=== PATIENT | male | born 2000 ===

== ENCOUNTER 2024-08-03 18:40 | Emergency (ER) | payer OTHER, SELFPAY ==
--- NOTE | ~2024-08-03 | XR_ITS ---
Portable chest x-ray Comparison: Chest pain Clinical History: None Findings: Lungs are clear, without focal consolidation or pleural effusion. Cardiomediastinal silho uette is unremarkable. Bones and soft tissues are unremarkable. Impression: Normal chest. Reviewed, dictated and finalized at location M. Impression: Normal chest.
--- NOTE | ~2024-08-03 | CT_ITS ---
CT of the Abdomen and Pelvis: Indication: Abdominal pain Technique: 2.5 mm axial scans were obtained through the abdomen and pelvis following intravenous adm inistration of 100 cc of Omnipaque 350. Dose reduction technique was used on this scan by utilizing a utomated exposure control and iterative reconstruction technique. The dose-length product (DLP) was 3 11.85 mGy-cm. Findings: Scans through the lung bases are unremarkable. The liver, spleen, pancreas, gallbladder, adrenals and kidneys are within normal limits. No evidence of aortic aneurysm. No lymphadenopathy. No bowel obstruction or bowel wall thickening. There is no evidence to suggest acute appendicitis. Images through the pelvis were performed. Urinary bladder unremarkable. No pelvic mass seen. No ascit es. Impression: No significant abnormalities seen. Reviewed, dictated and finalized at location . Impression: No significant abnormalities seen.
--- OUTSIDE RECORDS SUMMARY | 2024-08-03 18:43 | XMS_ITS ---
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 [address] [place] [address] 03/04/2024 Lida Martel Plan Of Treatment No Information Progress Notes * Michael DOS SANTOS ADOB: (23 yo M)Acc No.[id number]:03/04/2024 Progress Notes Patient: Michael RICHARDS Provider: Declan MARTEL MD :2000 A ge:23 Y S ex:Male Date:03/04/2024 Address:[address] [place] [address] [place] Pcp:Sigifredo Richardson MD Subjective: * Chief Complaints: * 1 . 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 * HPI: n ew patient: saw Dr. Titus, started on plaquenil, caused headaches. * Medical History: H ypothyroidism, positive rheumatoid factor, strabismus. * Family History: heart disease, diabetes. * Allergies: D og Dander, Egg White (Diagnostic). Objective: * Vitals: Assessment: Plan: * Treatment: * Billing Information: * Visit Code: * Procedure Codes: * Electronic signature of Lida Martel MD on 08/03/2024 at 06:43 PM CDT Sign off status: Pending * Provider: Declan MARTEL MD Date: 1 Generated for Victoria ward/Todd/Becky on: 0 08/03/2024 06:43 PM CDT History and Physical Notes * HPI (History of Present Illness) Category Sub-Category Detail Notes Category Not es new patient saw Dr. Titus , started on plaquenil, caused headaches
--- OUTSIDE RECORDS SUMMARY | 2024-08-03 18:43 | XMS_ITS | Patient Health Record ---
Author Organization [facility] carlos alberto Address [address] [place] [address] Care Team Providers Care Technical Instructor Course Developer Name Role Phone Sigifredo Richardson MD Primary Care Provider Lida Duran Unavailable [phone] Allergies Allergen (clinical drug ingredient) Drug/Non Drug Allergy documented on EMR Reaction Allergy Type Onset Date Status egg yolk (chicken) allergenic extract Egg White (Diagnostic) Unknown Drug Allergy Active Dog dander Dog Dander Unknown Allergy Active Results Component Value Reference Range Notes eGFR Reviewed date:03/20/2024 01:46:04 PM Interpretation: Performing Lab:[facility] , [address] [place] [address]. [facility] [address] Notes/Report: eGFR >90 >=60 mL/min/1.73 m2 Interpretive Data Reference Interval Normal >/= 90 mL/min/1.73m2 Mildly decreased* 60 - 89 mL/min/1.73m2 Mildly to moderately decreased 45 - 59 mL/min/1.73m2 Moderately to severely decreased 30 - 44 mL/min/1.73m2 Severely decreased 15 - 29 mL/min/1.73m2 Kidney Failure < 15 mL/min/1.73m2 *Relative to young adult level Estimated glomerular filtration rate is determined by the 2020 CKD-EPI equation recommended by the National Kidney Foundation (A Unifying Approach to GFR Estimation: Recommendations of the NKF-ASK Task Force on Reassessing the Inclusion of Race in Diagnosing Kidney Disease, JASN 2020). The CKD-EPI equation should not be used for patients with unstable renal function and has not been validated in children and those over 70. Current interpretive data was last reviewed 2021. Differential Automated Reviewed date:03/20/2024 01:46:04 PM Interpretation: Performing Lab:[facility] , [facility] [address] Notes/Report: Neut Abs 3.0 1.5-6.5 K/cumm ImmGran Abs 0.0 0.0-0.1 K/cumm Lymphocyte Abs 1.6 0.8-3.3 K/cumm Livingston Abs 0.5 0.2-0.8 K/cumm Eos Abs 0.1 0.0-0.5 K/cumm Baso Abs 0.0 0.0-0.1 K/cumm Neut Pct 56.5 Interpretive Data Percent cell count reference ranges are not reported, since discordance with absolute values may lead to misinterpretation of CBC data. Current Interpretive Data was last revised on 2017. ImmGran Pct 0.2 Interpretive Data Percent cell count reference ranges are not reported, since discordance with absolute values may lead to misinterpretation of CBC data. Current Interpretive Data was last revised on 2017. Lymph Pct 30.9 Interpretive Data Percent cell count reference ranges are not reported, since discordance with absolute values may lead to misinterpretation of CBC data. Current Interpretive Data was last revised on 2017. Livingston Pct 10.1 Interpretive Data Percent cell count reference ranges are not reported, since discordance with absolute values may lead to misinterpretation of CBC data. Current Interpretive Data was last revised on 2017. Eos Pct 1.7 Interpretive Data Percent cell count reference ranges are not reported, since discordance with absolute values may lead to misinterpretation of CBC data. Current Interpretive Data was last revised on 2017. Baso Pct 0.6 Interpretive Data Percent cell count reference ranges are not reported, since discordance with absolute values may lead to misinterpretation of CBC data. Current Interpretive Data was last revised on 2017. SSB Ab Reviewed date:03/21/2024 12:44:36 PM Interpretation: Performing Lab:[facility] , [facility] [place] [address] Notes/Report: SS B Antibody <0.2 <=0.9 Ab Index Interpretive Data Negative: < 1.0 Ab Index Positive: > or = 1.0 Ab Index Current interpretive data was last revised on 2016. SSA Ab Reviewed date:03/21/2024 12:44:36 PM Interpretation: Performing Lab:[facility] , [address] [place] [address] Notes/Report: SS A Antibody <0.2 <=0.9 Ab Index Interpretive Data Negative: < 1.0 Ab Index Positive: > or = 1.0 Ab Index Current interpretive data was last revised on 2016. Sed Rate Reviewed date:03/20/2024 04:43:48 PM Interpretation: Performing Lab:[facility] , [address] [place] [address] Notes/Report: ESR 6 1-15 mm/hr Rheumatoid Factor Reviewed date:03/20/2024 01:46:04 PM Interpretation: Performing Lab:[facility] , [address] [place] [address] Notes/Report: RF, Johny <10 <=15 IUnits/mL Parvovirus B19 Ab IgG, IgM Reviewed date:03/24/2024 02:32:36 PM Interpretation: Performing Lab:[facility] , [address] [place] [address] Notes/Report: Parvovirus, IgG Positive Negative Parvovirus, IgM Negative Negative Parvo B19 Interp See Footnote RESULT: Results suggest past infection. ADDITIONA L INFORMATION -- This test has been modified from the carpenter's helper's instructions. Its performance characteristics were determined by [facility] in a manner consistent with CLIA requirements. This test has not been cleared or approved by the U.S. Food and Drug Administration. Test Performed by: [facility] - [address] [address] Production Line Manager: Gloria Pisano Ph.D.; CLIA# [id number] Hep C AB Reviewed date:03/20/2024 01:46:04 PM Interpretation: Performing Lab:[facility] , [address] [place] [address]. [facility] [address] Notes/Report: Hepatitis C Antibody Nonreactive Nonreactive Interpretive Data Nonreactive: Antibodies to HCV not detected. Does NOT exclude the possibility of recent exposure to HCV. Equivocal: Equivocal for HCV antibodies. Supplemental molecular testing will be automatically performed to determine infection status in accordance with current CDC screening recommendations. Reactive: Positive for HCV antibodies. This may represent current or past HCV infection. Supplemental molecular testing will be automatically performed to determine current infection status in accordance with current CDC screening recommendations. Interpretive data was last revised on 2019. Hep B surf AG Reviewed date:03/20/2024 01:46:04 PM Interpretation: Performing Lab:[facility] , [address] [place] [address]. [facility] [address] Notes/Report: Hepatitis B Surface Antigen Nonreactive Nonreactive G6PD Ql Reviewed date:03/21/2024 10:48:00 AM Interpretation: Performing Lab:[facility] , [address] [place] [address]. [facility] [address] Notes/Report: G6PD, Qual Normal Normal Interp data: G6PD activity should be interpreted in the context of a patient's hematocrit. Hematocrit < 20% may lead to a falsely deficient result, while hematocrit > 50% may lead to a falsely normal result. Current interpretive data was last revised on 2019. Testing performed by: [facility], [address] [place]., [address] Creatine Kinase Reviewed date:03/20/2024 01:46:04 PM Interpretation: Performing Lab:[facility] , [facility]. [facility] [address] Notes/Report: Total CK 151 40-300 Units/L Comprehensive metabolic pane l (CMP) Reviewed date:03/20/2024 01:46:04 PM Interpretation: Performing Lab:[facility] , [facility]. [facility] [address] Notes/Report: Sodium 141 135-145 mmol/L Plasma Potassium 4.4 3.3-4.9 mmol/L Chloride 105 97-110 mmol/L Total CO2 27 22-32 mmol/L Anion Gap 9 2-15 mmol/L BUN 14 6-25 mg/dL Creatinine 1.08 0.80-1.30 mg/dL Glucose 88 70-199 mg/dL Interpretive Data Fasting glucose >/= 126 mg/dl is diagnostic for diabetes. Fasting is defined as no caloric intake for at least 8 hours. Fasting glucose between 100 mg/dl to 125 mg/dl is diagnostic of prediabetes. In a patient with classic symptoms of hyperglycemia or hyperglycemic crisis, a random glucose >/= 200 mg/dl is diagnostic for diabetes. In the absence of unequivocal hyperglycemia, results should be confirmed by repeat testing. The classification and Diagnosis of Diabetes Diabetes Care 2021; 46: S19-S40. Current interpretive data was last revised 2022. Total Calcium 9.7 8.5-10.3 mg/dL Total Bilirubin 0.3 0.1-1.2 mg/dL Plasma Total Protein 7.2 6.5-8.5 g/dL Albumin 4.5 3.5-5.0 g/dL Alkaline Phosphatase 76 40-130 Units/L ALT 23 7-55 Units/L AST 27 10-50 Units/L CBC w auto diff Reviewed date:03/20/2024 01:46:04 PM Interpretation: Performing Lab:[facility] , [address] [place] [address]. [facility] [address] Notes/Report: WBC 5.3 3.8-9.9 K/cumm Hgb 14.6 13.0-17.5 g/dL Hct 45.4 38.9-50.3 % Platelet Ct 291 150-400 K/cumm MPV 9.5 9.1-12.3 fL RBC 5.46 4.30-5.80 M/cumm MCV 83.2 81.3-96.4 fL MCH 26.7 27.1-33.3 pg MCHC 32.2 32.3-35.7 g/dL RDW CV 12.0 11.1-14.9 % RDW SD 36.3 35.7-48.1 fL NRBC Abs Auto 0.00 0.00-0.01 K/cumm C Reactive Protein Reviewed date:03/20/2024 01:46:04 PM Interpretation: Performing Lab:[facility] , [address] [place] [address]. [facility] [address] Notes/Report: C-Reactive Protein <3.0 <=10.0 mg/L Anti-CCP (Cyclic Citrullinat ed Peptide Ab) Reviewed date:03/21/2024 10:50:32 AM Interpretation: Performing Lab:[facility] , [address] [place] [address]. [facility] [address] Notes/Report: CCP Ab <0.5 <=2.9 units/mL Interpretive data Negative: <3 units/mL Positive: > or equal to 3 units/mL Current interpretive data was last revised on 2016. JEB reflex titer pattern JUDY + dsDNA Reviewed date:03/23/2024 02:14:58 PM Interpretation: Performing Lab:[facility] , [address] [place] [address]. [facility] [address] Notes/Report: JEB, Qual Negative Interpretive Data Normal range for JEB Qualitative Antibody = Negative. 1. JEB is performed using indirect immunofluorescence against HEp-2 cells 2. JEB titers are performed on all positive qualitative results. 3. A significantly positive JEB result is defined as a positive nuclear fluorescence at a titer of 1:80 or greater. 4. 15% of normal people above age 65 have significantly positive JEB results. 5% or less of normal people age 65 or under have significantly positive JEB results. Current interpretive data was last revised on 2019. Testing performed by: [facility], [address] [place]., [address] Reason For Referral No Information Medications Medication SIG (Take, Route, Frequency, Duration) Notes Start Date End Date Status Levothyroxine Sodium 137 MCG 1 tablet in the morning on an empty stomach Orally Once a day for 30 day(s) Active Angela Allergy 180 MG 1 tablet Swallow whole with water; do not take with fruit juices. Orally Once a day for 30 day(s) Active Social History Tobacco Use: Social History Observation Description Date Details (start date - stop date) Never Smoker NA - NA Household Question Answer Notes Marital status: Number of children in household: 2 Tobacco Control (Standard) Question Answer Notes Tobacco use: Nonsmoker Problems Problem Type SNOMED Code ICD Code Onset Dates Problem Status W/U Status Risk Notes Problem 341506715 Dry eyes (H04.123) Active confirmed Vital Signs Heart Rate 90 /min 03/20/2024 Temperature 98.6 degrees Fahrenheit 03/20/2024 Blood pressure diastolic 80 mm Hg 03/20/2024 Oximetry 97 % 03/20/2024 Height-cm 182.88 cm 03/20/2024 Weight-kg 100.23 kg 03/20/2024 Height 72 in 03/20/2024 Blood pressure systolic 124 mm Hg 03/20/2024 Weight 221.0 lbs 03/20/2024 BMI 29.97 kg/m2 03/20/2024 Encounters Encounter Location Date Provider Diagnosis [facility] [address] [facility] [place] [address] 03/20/2024 Lida Du Multiple joint pain M25.50 and Dry eyes H04.123 [facility] [address] [place] [address] 04/04/2024 Lida Du Multiple joint pain M25.50 and Dry eyes H04.123 Assessments Encounter Date Diagnosis (ICD Code) Assessment Notes Treatment Notes Treatment Clinical Notes Section Notes 03/20/2024 Multiple joint pain (ICD-10 - M25.50) 23 year old male with joint pain and sicca symptoms. I am asked to evaluate him for inflammatory arthritis. He does not have synovitis on examination today. Serologies will be ordered. Follow up visit will be scheduled. Thank you for referring this patient. cc Dr. Richardson 03/20/2024 Dry eyes (ICD-10 - H04.123) 23 year old male with joint pain and sicca symptoms. I am asked to evaluate him for inflammatory arthritis. He does not have synovitis on examination today. Serologies will be ordered. Follow up visit will be scheduled. Thank you for referring this patient. cc Dr. Richardson 04/04/2024 Multiple joint pain (ICD-10 - M25.50) labs discussed with patient, serologies (-), will give a trial of steroids and see how he responds, order early Sjogren's profile 04/04/2024 Dry eyes (ICD-10 - H04.123) labs discussed with patient, serologies (-), will give a trial of steroids and see how he responds, order early Sjogren's profile Plan Of Treatment Pending Test Test Name Order Date EARLY SJOGRENS SYNDROME PROFILE (14200) 04/04/2024 Insurance Providers Payer Name Payer Address Payer Phone Subscriber Number Group Number Insured Name Patient Relationship to Insured Coverage Start Date Coverage End Date Cigna Ppo [address] Daina almendarez, [place] [address] [id number] Michael Villaseñor Self - patient is the insured Medical (General) History Medical History History ICD Code hypothyroidism, positive rheumatoid fact or, strabismus Surgical History Surgery Date(Month/Year) none
--- OUTSIDE RECORDS SUMMARY | 2024-08-03 18:43 | XMS_ITS | Referral Summary ---
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 [id number] NELIDA OPEN ACCESS Care Teams Field Technical Specialist Relationship Specialty Start Date End Date Sigifredo Richardson MD [address] [place] [address] PCP - General Internal Medicine 03/20/24
--- OUTSIDE RECORDS SUMMARY | 2024-08-03 18:43 | XMS_ITS | Clinical Summary ---
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 [id number] [employer] OPEN ACCESS Care Teams Qc Chemist Relationship Specialty Start Date End Date Sigifredo Richardson MD [address] [place] [address] PCP - General Internal Medicine 03/20/24
--- NOTE | 2024-08-03 18:45 | ECG_ITS ---
Test Date: 2024-08-03 18:49:55 Measurements Intervals [place] Rate: 70 P: 75 CA: 169 QRS: 67 QRSD: 93 T: 34 QT: 376 QTc: 408 Interpretive Statements SINUS RHYTHM BASELINE ARTIFACT- I, II, III, AVR, AVL, AVF, V1-V2 NORMAL ECG No previous ECG available for comparison Electronically Signed On 08-03-2024 19:29:31 CDT by Isaak Jansen D.O.
[2024-08-03 18:46] VITALS: BP 117/66; PULSE 67; RESP 16; TEMP 36.4; O2SAT 100
--- OUTSIDE RECORDS SUMMARY | 2024-08-03 20:29 | XMS_ITS | Clinical Summary ---
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 Strabismus 04/30/2019 Blurry vision, left eye 04/30/2019 Diplopia 04/30/2019 Uncomplicated degenerative myopia of both eyes 0 04/30/2019 Family History Medical History Relation Name Comments Diabetes Maternal Grandfather Amblyopia Neg Hx Blindness Neg Hx Corneal Dystrophies Neg Hx Detachment/Tears Neg Hx Fuchs' dystrophy Neg Hx Glaucoma Neg Hx Keratoconus Neg Hx Macular Degen Neg Hx Strabismus Neg Hx Relation Name Status Comments Maternal Grandfather Social History Tobacco Use Types Packs/Day Years Used Date Smoking Tobacco: Never Smokeless Tobacco: Never Sex and Gender Information Value Date Recorded Sex Assigned at Not on file Legal Sex Male 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 Gender Identity Not on file Sexual Orientation Not on file Last Filed Vital Signs Vital Sign Reading Time Taken Comments Blood Pressure 143/88 05/07/2019 11:42 AM BROADCASTING EQUIPMENT MECHANIC Pulse 86 05/07/2019 11:42 AM BROADCASTING EQUIPMENT MECHANIC Temperature - - Respiratory Rate - - Oxygen Saturation - - Inhaled Oxygen Concentration - - Weight 88.5 kg (195 lb) 05/07/2019 11:42 AM BROADCASTING EQUIPMENT MECHANIC Height 182.9 cm (6') 05/07/2019 11:42 AM BROADCASTING EQUIPMENT MECHANIC Body Mass Index 26.45 05/07/2019 11:42 AM BROADCASTING EQUIPMENT MECHANIC Plan of Treatment Health Maintenance Due Date Last Done Comments HPV VACCINES (1 - Male 3-dose series) 2013 DTAP/TDAP/TD VACCINES (1 - Tdap) 2017 HEPATITIS B VACCINES (1 of 3 - 19+ 3-dose series) 10/03 INFLUENZA VACCINE (#1) 2023
--- OUTSIDE RECORDS SUMMARY | 2024-08-03 20:29 | XMS_ITS | Referral Summary ---
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 [address] NEL[place] OPEN ACCESS Care Teams Community Nutrition Educator Relationship Specialty Start Date End Date Sigifredo Richardson MD [address] [place] [address] PCP - General Internal Medicine 03/20/24
--- OUTSIDE RECORDS SUMMARY | 2024-08-03 20:29 | XMS_ITS | Clinical Summary ---
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 [address] [employer] OPEN ACCESS Care Teams Reset Merchandiser Relationship Specialty Start Date End Date Sigifredo Richardson MD [address] [place] [address] PCP - General Internal Medicine 03/20/24
--- NOTE | 2024-08-03 20:58 | ED.ABDPAIN ---
HPI - Abdominal Pain General Chief Complaint: Abdominal Pain Stated Complaint: RUQ abd. pain and L. chest pain x1 week Time Seen by Provider: 08/03/24 20:16 Source: patient and family () Mode of arrival: ambulatory Limitations: no limitations History of Present Illness HPI narrative: Patient presents with report of abdominal pain and chest pain. In particular, reports RUQ abdominal pain but appears to point to right/middle chest. Had been having left chest pain earlier. Symtoms for 1 week. PCP through [facility] prescribed oemprazole and amoxicillin with no relief. He continues to have pain. Patient's son had diarrhea for 4 days and then he started developing diarrhea although his had blood mixed in it (not the son's) x2 days. Concerned for salmonella; 2 other family members did not have symptoms. He had taken two doses of 400mg ibuprofen the day prior. Not on steroids or any other anticoagulation. His only medication is thyroid medication which has been a stable dose without any changes recently. No cough, no hemoptysis. No lower extremity edema. No recent travel or surgery requiring anesthesia. No history of PE or DVT. Not on exogenous hormones. No nausea, he had been vomiting earlier in the course but this subsided. ALEJANDRINA earlier, no appetite. No alcohol, denies cough. No previous abdominal surgeries. No urinary symptoms (dysuria, hematuria, urgency, frequency). No penile pain or discharge. No fevers/chills. Cardiac risk factors HTN: 0 HLD:0 DM:0 Obese:0 Smoker:0 Personal history KS/TIA/CVA: 0 Fam Hx KS in first degree relative <65yo:0 Related Data Allergies Allergy/AdvReac Type Severity Reaction Status Date / Time No Known Allergies Allergy Verified 08/03/24 18:41 PMFSH Past Medical History Medical History No significant past medical history Social History Social History Smoking status: Never smoker Alcohol intake: never Living arrangements: with family Additional living arrangements comments: and children Occupation/Education: occupation Additional occupation/education comments: employed Exam Narrative: GENERAL: Well-appearing, well-nourished, and in no acute distress. HEAD: Normocephalic, atraumatic. EYES: Non injected, non icteric ENT: Nares clear, no rhinorrhea or epistaxis. Gross auditory acuity intact. NECK: Supple. No meningismus. CHEST: Speaking in full sentences. No respiratory distress. HEART: Regular rate and rhythm. . ABDOMEN/Rectal: Soft, nondistended. No rigidity or guarding. Not peritoneal. Soler sign negative. Rectal exam performed. Small external nonthrombosed hemorrhoids. Normal sphincter tone. Normal appearing stool on gloved finger. FOBT with very faint area of faint blue on a small 1mm portion in 1 window. EXTREMITIES: Normal range of motion. No bilateral lower extremity edema. SKIN: Warm, dry, no rash. NEURO: No focal deficits. Alert and oriented. Answering questions. Following commands. Normal speech without aphasia or dysarthria. PSYCH: Normal mood and affect. Course Vital Signs Vital signs: Vital Signs Temperature 97.6 F 08/03/24 18:46 Pulse Rate 67 08/03/24 18:46 Respiratory Rate 16 08/03/24 18:46 Blood Pressure 117/66 08/03/24 18:46 Pulse Oximetry 100 08/03/24 18:46 Temperature 97.6 F 08/03/24 18:46 Pulse Rate 67 08/03/24 18:46 Respiratory Rate 16 08/03/24 18:46 Blood Pressure 117/66 08/03/24 18:46 Pulse Oximetry 100 08/03/24 18:46 MDM - Abdominal Pain MDM Narrative Medical decision making narrative: Patient presents with abdominal (RUQ in particular) abdominal pain as well as chest pain. Recently started having hematochezia. Son had been having diarrhea earlier although his had not been bloody. In the emergency department they are afebrile with vital signs within normal limits. Patient with chest pain but PERC Rule Age greater than or equal to 50: 0 HR greater than or equal to 100:0 O2 sat room air <95%:0 Unilateral leg swellin Hemoptysis:0 Recent surgery or trauma less than 4 wks ago requiring tx with general anesthesia:0 Prior PE or DVT: 0 Hormone use (OCP, HRT or estrogenic hormone use in M/F patients): 0 Will defer further work up for PE as this is not felt to be the most likely diagnosis. HEART SCORE History 2 highly suspicious 1 moderately suspicious 0 slightly suspicious History score [address] depression/elevation not due to LBBB, LVH, or digoxin [address] depression but LBBB, LVH, nonspecific repolarization changes 0 normal ECG score 0 Age 2 >/= 65 1 45-64 0 <45 Age score 0 Risk factors (HTN, hypercholesterolemia, DM, obesity with BMI >30, current smoker or cessation </=3mo), positive fam hx with parent or sibling with CVD before age 65, atherosclerotic disease (prior KS, PCI/CABG, CVA/TIA, or peripheral arterial disease) 2 >/= 3 risk factors or history of atherosclerotic dz 1 - 1-2 risk factors 0 no known risk factors Risk factor score 0 Initial Troponin 2 >3 times normal limit 1 1-3 times normal limit 0 less than or equal to normal limit Troponin score 0 Total HEART Score 0 Normocytic anemia with no prior for comparison in our EMR but 13.6 on outpatient labs earlier this week (and had been 15 in prior years). Pantoprazole ordered. Discussed patient's workup with him thus far. He notes that he is still having some pain. He has just received the p.o. Bentyl but will order IV morphine. He has not had a bowel movement since he has been here but orders are placed for stool studies if he is able to produce a sample. He is willing to trial p.o. challenging at this time and we will obtain the repeat labs as per shared decision making with patient. Salmonella is considered however antibiotics have not been shown to reduce duration of symptoms and are therefore not recommended given this is otherwise a possible [id number] infection, patient is immunocompetent, and not at an extreme of age. However, patient p.o. challenges and tells the nurse that after consideration he does not want to stay little longer for repeat labs (3 hour troponon or repeat H/H) and this is also very reasonable as very low suspicion that repeat troponin would be abnormal he is otherwise low heart score and similarly he has not had subsequent bleeding and IGNACIO was as above thus low suspicion that he has become frankly anemic, especially not to a degree to suggest he would require a blood transfusion or further emergent intervention such as endoscopy or colonoscopy. We discussed limiting use/avoiding taking Imodium ED except if absolutely necessary as this needs to run its course. He verifies understanding and is in agreement. Patient was concerned about his pancreas given that his lipase on outpatient labs from his primary care physician showed a lipase in the 80s and the upper limit of normal at 77. We discussed the diagnosis of pancreatitis and why this is not felt to be likely. We discussed that his BUN had been elevated on outpatient labs and remains elevated today and this is likely due to some of the blood loss he was experiencing and the urinalysis that showed trace ketonuria. We discussed that patient's chest pain is very unlikely felt to be cardiac in nature but he is given a referral/contact information for Cardiology if he continues to have issues. In addition, we discussed the natural timeline that he should expect in regards to his abdominal pain and diarrhea/bloody diarrhea but he is given referral contact information for Gastroenterology as, possible first presentation of IBD (though again, less likely given symptoms were preceded by a family member who also had diarrhea). Provided prescriptions for Zofran and Bentyl. Given strict ED return precautions and encouraged follow up with PCP who may request outpatient lab to recheck H/H. Differential Diagnosis Differential diagnosis: Likely abdominal pain, constipation, diverticulitis, gastroenteritis, pancreatitis and other (biliary etiology; gastritis; infectious diarrhea; IBD; diverticulosis; Meckels; medication side effect; hemorrhoid; ACS; telangectasia; C diff) Lab Data 08/03/24 21:16 08/03/24 21:15 Labs: Lab Results 08/03/24 08/03/24 Range/Units 21:15 21:16 WBC 6.2 (4.5-10.0) K/mm3 RBC 4.64 (4.6-6.20) M/mm3 Hgb 12.4 L (14.0-18.0) g/dL Hct 39.1 L (42.0-52.0) % MCV 84.3 (80-100) fl MCH 26.7 (26-34) pg MCHC 31.7 L (32-36) g/dl RDW 12.9 (11.5-14.5) % Plt Count 202 (150-375) k/mm3 MPV 9.7 (7.4-10.4) fl Immature Gran % (Auto) 0.2 (0-0.5) % Neut % (Auto) 46.5 (45.5-73.1) % Lymph % (Auto) 39.7 (18.3-44.2) % [place] % (Auto) 9.4 H (2.6-8.5) % Eos % (Auto) 3.4 (0-4.4) % Baso % (Auto) 0.8 (0.2-1.2) % Lymph # (Auto) 2.45 (0.9-3.2) K/mm3 [place] # (Auto) 0.6 (0.1-0.6) K/mm3 Eos # (Auto) 0.2 (0-0.3) K/mm3 Baso # (Auto) 0.1 (0.0-0.1) K/mm3 Abs Immat Gran (auto) 0.01 (0.00-0.031) K/mm3 Absolute Neuts (auto) 2.9 (1.3-6.7) K/mm3 Absolute Nucleated RBC 0.000 (0.0-0.012) K/mm3 Nucleated RBC % 0.0 (0.0-0.2) % Sodium 139 (137-145) mmol/L Potassium 3.8 (3.4-5.0) mmol/L Chloride 104 (98-107) mmol/L Carbon Dioxide 27 (22-30) mmol/L Anion Gap 8 (4-12) mmol/L BUN 29 H (9-20) mg/dL Creatinine 1.05 (0.7-1.3) mg/dL Estim Creat Clear Calc 104 ml/min Estimated GFR > 60 (59 - ) Glucose 94 (65-110) mg/dL Calcium 9.2 (8.4-10.2) mg/dL Total Bilirubin 0.3 (0.2-1.3) mg/dL AST 47 (17-59) U/L ALT 34 (6-50) U/L Alkaline Phosphatase 60 (38-126) U/L Troponin I < 0.012 (0.000-0.034) ng/mL Total Protein 7.0 (6.3-8.2) g/dL Albumin 4.1 (3.5-5.1) g/dL Lipase 226 (23-300) U/L Urine Color Yellow (Yellow) Urine Appearance Clear (Clear) Urine pH 5.5 (5.0-9.0) Ur Specific [place] 1.031 (1.001-1.035) Urine Protein Negative (Negative) mg/dL Urine Glucose (UA) Negative (Negative) mg/dL Urine Ketones Trace H (Negative) mg/dL Ur Blood (Man) Negative (Negative) Urine Nitrate Negative (Negative) Urine Bilirubin Negative (Negative) Urine Urobilinogen 0.2 (<2.0) mg/dL Leukocyte Esterase Rfl Negative (Negative) MARJ/UL Influenza A (RT-PCR) Negative (Negative) Influenza B (RT-PCR) Negative (Negative) RSV (RT-PCR) Negative (Negative) SARS-CoV-2 RNA (RT-PCR) Negative (Negative) Imaging Data Attestation: I personally reviewed and interpreted this imaging study as follows: My impression: Slightly elevated right hemidiaphragm compared to the left the otherwise no acute intra thoracic process my independent interpretation of chest x-ray Radiologist's impression: ITS Impressions Abdomen/Pelvis CT 08/04/24 05:24 Impression: No significant abnormalities seen. Chest X-Ray 08/04/24 05:28 Impression: Normal chest. CT Abd & Pelvis w/ Contrast Stat Rad: No active hemorrhage seen limited due to protocol. If there is concern for hemodynamically significant gastrointestinal hemorrhage consider CTA without and with IV contrast and with 3 minute delayed venous phase imaging. Possible mild enteritis. Otherwise no acute point. ECG Data EKG #1: Attestation: I personally reviewed and interpreted this ECG as follows: ECG completion date: 08/03/24 ECG completion time: 18:49 Interpretation: Normal sinus rhythm at a rate of 70 beats per minute. SC interval 169. QRS 93. QT/QTC 376/397. Good R-wave progression across the precordial leads. No T-wave inversion. Normal axis. Normal ECG. Discharge Plan Discharge Clinical Impression: Normocytic anemia, Hematochezia, Enteritis, Chest pain, Abdominal pain Patient Disposition: Home Condition: Stable Instructions: Antibiotic Form, Chest Pain (DC), Gastroenteritis (DC), Acute Diarrhea (ED), Abdominal Pain (ED), Anemia (ED), Enteritis (ED) Additional Instructions: Follow-up with your primary care physician who may recommend a repeat CBC or H/H lab in the outpatient setting to assess your hemoglobin (red blood cells). Return to the Emergency Department immediately if the pain worsens, develops fever, persistent and uncontrolled vomiting, or for any new symptoms or concerns. You can use the medications prescribed. As we discussed, your chest pain is unlikely to be cardiac in nature in your otherwise low risk but the name of a marketing production manager is listed below if issues persist beyond this episode. In addition, he your GI symptoms should run their course but if you continue to have issues in 5-7 days you can follow-up with the social work instructor listed below. Patient Language: Brazilian Prescriptions: New ondansetron 4 mg tablet,disintegrating 4 mg PO Q8H PRN (Reason: nausea and vomiting) Qty: 7 0RF dicyclomine 10 mg capsule 10 mg PO BID PRN (Reason: abdominal pain) Qty: 10 0RF Follow-up/Referrals: Tanmay Faria MD [Physician] - (cardiology) PHYSICIAN NOT ON STAFF,NONSTAFF [Primary Care Provider] - Carrington Schroeder MD [Physician] - (gastroenterology) Stand Alone Forms: Work/School Release IP Time of Disposition: 00:02
[2024-08-03 21:23] LABS: Basophils Absolute Auto 0.1 K/mm3 (0.0-0.1); Basophils Percent Auto 0.8 % (0.2-1.2); Eosinophils Absolute Auto 0.2 K/mm3 (0-0.3); Eosinophils Percent Auto 3.4 % (0-4.4); Hematocrit 39.1 % (42.0-52.0); Hemoglobin 12.4 g/dL (14.0-18.0); Immature Granulocyte Absolute 0.01 K/mm3 (0.00-0.031); Immature Granulocyte Percent A 0.2 % (0-0.5); Lymphocytes Absolute Auto 2.45 K/mm3 (0.9-3.2); Lymphocytes Percent Auto 39.7 % (18.3-44.2); Mean Corpuscular HGB Conc 31.7 g/dl (32-36); Mean Corpuscular Hemoglobin 26.7 pg (26-34); Mean Corpuscular Volume 84.3 fl (80-100); Mean Platelet Volume 9.7 fl (7.4-10.4); Monocytes Absolute Auto 0.6 K/mm3 (0.1-0.6); Monocytes Percent Auto 9.4 % (2.6-8.5); Neutrophils Absolute Auto 2.9 K/mm3 (1.3-6.7); Neutrophils Percent Auto 46.5 % (45.5-73.1); Platelet Count Result 202 k/mm3 (150-375); Red Blood Count 4.64 M/mm3 (4.6-6.20); Red Cell Distribution Width 12.9 % (11.5-14.5); White Blood Count 6.2 K/mm3 (4.5-10.0)
[2024-08-03 21:25] LABS: Add Urine Microscopic? NO; Appearance Urine Clear (Clear); Bilirubin Urine Negative (Negative); Blood Urine Negative (Negative); Color Urine Yellow (Yellow); Glucose Urine UA Negative (Negative); Ketones Urine Trace mg/dL (Negative); Leukocyte Esterase Ur Negative LEU/UL (Negative); Nitrate Urine Negative (Negative); Protein Urine Negative (Negative); Specific Grav Ur 1.031 (1.001-1.035); Urobilinogen Urine 0.2 mg/dL (<2.0); pH Urine 5.5 (5.0-9.0)
[2024-08-03 21:35] LABS: Alanine Aminotransferase 34 U/L (6-50); Albumin Level 4.1 g/dL (3.5-5.1); Alkaline Phosphatase 60 U/L (38-126); Anion Gap 8 mmol/L (4-12); Aspartate Amino Transferase 47 U/L (17-59); Bilirubin,Total 0.3 mg/dL (0.2-1.3); Blood Urea Nitrogen 29 mg/dL (9-20); Calcium 9.2 mg/dL (8.4-10.2); Carbon Dioxide 27 mmol/L (22-30); Chloride 104 mmol/L (98-107); Estimated CRCL calculation 104 ml/min; Estimated Glomerular Filt Rate > 60; Glucose 94 mg/dL (65-110); Lipase 226 U/L (23-300); Potassium 3.8 mmol/L (3.4-5.0); Sodium 139 mmol/L (137-145)
[2024-08-03 21:50] LABS: Troponin I < 0.012 ng/mL (0.000-0.034)
[2024-08-03 22:00] LABS: Influenza A QL RT-PCR Negative (Negative); Influenza B QL RT-PCR Negative (Negative); RSV RNA, RT-PCR Negative (Negative); SARS-CoV-2 RNA PCR Negative (Negative)
[2024-08-03] MEDS: PANTOPRAZOLE SODIUM IV 40 MG VIAL IV PUSH (22:12)
[2024-08-03] MEDS: DICYCLOMINE HCL 10 MG CAPSULE PO (22:55)
[2024-08-03] MEDS: MORPHINE SULFATE (*CRX) 4 MG/ML INJ IV PUSH (23:39)
== END 2024-08-04 00:13 | disposition home or self-care (01) ==
PROVIDERS: Emergency Medicine; Emergency Provider Student in an Organized Health Care Education/Training Program
DX: D64.9 Anemia, unspecified (principal); K92.1 Melena; K52.9 Noninfective gastroenteritis and colitis, unspecified; R07.9 Chest pain, unspecified; R10.11 Right upper quadrant pain
CPT/HCPCS: 36415; 71045; 74177; 80053; 81003; 83690; 84484; 85025; 87637; 93005; 96374; 96375; 99284; A9270; J2270; J2470; Q9967